=== PATIENT | male | born 1965 | race Caucasian/White ===

== ENCOUNTER 2022-09-20 15:29 | Emergency (ER) | payer OTHER ==
[~2022-09-20] VITALS: Ht 167.6 cm; Wt 81.7 kg
[2022-09-20] MEDS ORDERED: LISI20 PO (16:52)
== END 2022-09-20 17:25 | disposition home or self-care (01) ==
LOC: ER 15:29
DX: S83.8X2A Sprain of other specified parts of left knee, initial encounter (principal); W18.40XA Slipping, tripping and stumbling without falling, unspecified, initial encounter; Z88.2 Allergy status to sulfonamides; Z91.018 Allergy to other foods; Z91.09 Other allergy status, other than to drugs and biological substances; Z79.899 Other long term (current) drug therapy
CPT/HCPCS: 29505; 99283-25

== ENCOUNTER 2024-07-13 11:07 | Day surgery (SDC) | payer OTHER ==
[2024-07-13] VITALS (15 sets, daily range): BP systolic 93–141; BP diastolic 58–96
[~2024-07-13] VITALS: Ht 167.6 cm; Wt 82.2 kg
[~2024-07-13 11:07] MED LIST: ATOR20 PO; Acetaminophen 500 MG Tab PO SCH; CeFAZolin Sodium 2,000 MG in NS 100 ML IV SCH; Chlorhexidine Mouth Care 15 ML UDC MT SCH; DULO30 PO; FentaNYL Citrate 50 MCG/ML 2 ML Injection ONE; Flonase 0.05% N16 GM; HYDCHL25 PO; LISI20 PO; Lactated Ringer's 1,000 ML IV SCH; NORVASC2.5 MG PO; OMEP20ER PO; OxyCODONE HCL 10 MG TABCR PO SCH; PANTOPRAZOLE SO20 M3 PO; Percocet 5-3251 EACH PO; Ropivacaine 0.5% HCl/Pf 123.125 MG,EPINEPHrine HCL 0.25 MG,Ketorolac Tromethamine 15 MG... INFIL SCH; Tranexamic Acid 100 ML IV SCH; ZYRTEC10 M2 PO; propofoL 20 ML IV ONE
--- NOTE | 2024-07-13 12:00 | NUR ---
INTO SDS. PT REPORTS 4/10 LEFT KNEE PAIN. PT HAS CHRONIC PAIN AND HAS HAD MULTIPLE SURGERIES IN THE PAST. PT HAS NERVE STIMULATOR THAT IS IMPLANTED, BUT NOT CURRENTLY WORKING DUE TO HAVING A BATTERY. HISTORY AND ALLERGIES REVIEWED. LUNGS CLEAR-NO NOTED SOB. SATS 100% ON RA. NPO STATUS CONFIRMED. Patient reports completing Chlorhexadine shower X2 prior to admission to hospital.Surgical site prepped with 2% Chlorhexidine cloth wipe.
[2024-07-13] MEDS ORDERED: Bisacodyl 10 MG Supp PR PRN (12:50)
[2024-07-13] MEDS ORDERED: OxyCODONE HCL 5 MG TAB PO PRN ×2 (12:50)
[2024-07-13] MEDS ORDERED: Magnesium Hydroxide Conc 10 ML UDC PO PRN (12:55)
[2024-07-13] MEDS ORDERED: Lactated Ringer's 1,000 ML IV SCH (12:55)
[2024-07-13] MEDS ORDERED: Metoclopramide HCl 5MG / ML 2ML Vial IV PRN (12:55)
[2024-07-13] MEDS ORDERED: Promethazine HCl 25 MG Tab PO PRN (12:55)
[2024-07-13] MEDS ORDERED: Ondansetron HCl 2 MG / ML 2ML Vial IV PRN (12:55)
[2024-07-13] MEDS ORDERED: DiphenhydrAMINE HCL 25 MG Cap PO PRN (13:00)
[2024-07-13] MEDS ORDERED: FLU VACC TS2024-25(6MOS UP)/PF 45 MCG/0.5 ML SYRINGE IM SCH (13:00)
[2024-07-13] MEDS ORDERED: HYDROmorphone HCl/Pf 1MG SYR IV PRN (13:00)
[2024-07-13] MEDS ORDERED: propofoL 20 ML IV ONE ×2 (13:42→14:36)
[2024-07-13] MEDS ORDERED: FentaNYL Citrate 50 MCG/ML 2 ML Injection ONE (15:27)
[2024-07-13] MEDS ORDERED: Acetaminophen 500 MG Tab PO SCH (16:00)
[2024-07-13] MEDS ORDERED: Ketorolac Tromethamine 15mg Vial IV SCH (18:00)
[2024-07-13] MEDS ORDERED: CeFAZolin Sodium 2,000 MG in NS 100 ML IV SCH (21:00)
[2024-07-13] MEDS ORDERED: Docusate Sodium 100 MG Cap PO SCH (21:00)
[2024-07-14 00:17] VITALS: BP 107/64
--- NOTE | 2024-07-14 04:20 | NUR ---
SHIFT SUMMARY POD1 L TOTAL KNEE. PAIN MANAGED UTILIZING NPIS AND PER EMAR. DRESSING TO L KNEE CDI. PT REPORTS HE USES CPAP AT NIGHT AT HOME, DID NOT BRING TONIGHT. PT SAYS HE DOES NOT WANT CPAP TONIGHT, STATES, "I DON'T NEED IT ALL THE TIME". VOIDING, PASSING GAS, TOLERATING PO INTAKE. PT ABLE TO REST DURING SHIFT. PT VOICED UNDERSATNDING OF PLAN OF CARE, DENIES QUESTIONS/CONCERNS AT THIS TIME.
[2024-07-14 04:40] VITALS: BP 101/60
[2024-07-14 05:40] LABS: BASOPHILS ABSOLUTE AUTO 0.05 K/mm3 (0.00-0.23); BASOPHILS PERCENT AUTO 1 % (0-2); EOSINOPHILS ABSOLUTE AUTO 0.22 K/mm3 (0.00-0.68); EOSINOPHILS PERCENT AUTO 2 % (0-6); Hematocrit 29.3 % (37.0-53.0); Hemoglobin 9.9 g/dL (13.5-17.5); IMMATURE GRAN ABSOLUTE AUTO 0.03 K/mm3 (0.00-0.10); IMMATURE GRAN PERCENT AUTO 0 % (0-1); LYMPHOCYTES ABSOLUTE AUTO 0.26 K/mm3 (0.84-5.20); LYMPHOCYTES PERCENT AUTO 3 % (21-46); MONOCYTES ABSOLUTE AUTO 0.52 K/mm3 (0.16-1.47); MONOCYTES PERCENT AUTO 5 % (4-13); Mean Corpuscular HGB 30.7 pg (26.0-34.0); Mean Corpuscular HGB Conc 33.8 g/dL (31.5-36.5); Mean Corpuscular Volume 91 fL (80-100); Mean Platelet Volume 10.4 fL (9.1-12.4); NEUTROPHILS ABSOLUTE AUTO 8.51 K/mm3 (1.96-9.15); NEUTROPHILS PERCENT AUTO 89 % (41-73); Platelet Count 212 K/mm3 (150-400); RDW Coefficient Variation 13.1 % (11.7-14.2); Red Blood Cell Count 3.22 M/mm3 (4.30-5.90); White Blood Cell Count 9.59 K/mm3 (4.00-11.30)
[2024-07-14] MEDS ORDERED: Pantoprazole Sodium 20 MG Tab PO SCH (06:00)
[2024-07-14 06:06] LABS: Bun/Creatinine Ratio 8.8 (12.0-20.0); Calcium, Blood 8.3 mg/dL (8.5-10.1); Creatinine, Blood 1.93 mg/dL (0.60-1.20); Magnesium, Blood 1.7 mg/dL (1.6-2.4); Potassium, Blood 4.9 mmol/L (3.5-5.5)
[2024-07-14 07:16] VITALS: BP 97/60
[2024-07-14] MEDS ORDERED: ASPI81CH PO (07:44)
[2024-07-14] MEDS ORDERED: ACET500 PO (07:44)
[2024-07-14] MEDS ORDERED: OXYC5 PO (07:44)
[2024-07-14] MEDS ORDERED: Aspirin 81 MG Chew PO SCH (09:00)
[2024-07-14] MEDS ORDERED: Fluticasone 0.05% Nasal Spray SCH (09:00)
[2024-07-14] MEDS ORDERED: AmLODIPine Besylate 5 MG Tab PO SCH (09:00)
[2024-07-14] MEDS ORDERED: Lisinopril 20 MG Tab PO SCH (09:00)
[2024-07-14] MEDS ORDERED: DULoxetine HCL 30 MG Cap DR PO SCH (09:00)
--- NOTE | 2024-07-14 11:25 | NUR ---
DISCHARGE SUMMARY POD 1 L TKA. VSS. TOLERATING ORALS. VOIDING. AMBULATES USING FWW, CLEARED PHYSCIAL THERAPY EVAL. AQUACEL C/D/I. PT REPORTS PAIN TOLERABLE c ORAL PAIN MEDICATIONS. DISCHARGE INSTRUCTIONS GIVEN TO PT, PT VERBALIZES UNDERSTANDING. IV REMOVED. ALL PERSONAL BELONGINGS WITH PT. PT D/C'd TO POV VIA WHEELCHAIR, DRIVEN BY SPOUSE.
== END 2024-07-14 11:25 | disposition home or self-care (01) ==
LOC: ORSCMMR 11:07 → ORD 13:30 → SURS 15:34 → ORD 16:00 → ORSCMMR 16:00
PROVIDERS: Orthopaedic Surgery
PROC: 0SRD0JZ Replacement of Left Knee Joint with Synthetic Substitute, Open Approach (ICD-10-PCS; principal; 2024-07-13 12:30)
DX: M17.12 Unilateral primary osteoarthritis, left knee (principal); E11.9 Type 2 diabetes mellitus without complications; K21.9 Gastro-esophageal reflux disease without esophagitis; E78.5 Hyperlipidemia, unspecified; I10 Essential (primary) hypertension; G47.33 Obstructive sleep apnea (adult) (pediatric); F17.210 Nicotine dependence, cigarettes, uncomplicated; Z79.899 Other long term (current) drug therapy; Z79.82 Long term (current) use of aspirin
CPT/HCPCS: 36415; 73560-LT; 80048; 82947; 83735; 84295; 85025; 97110; 97162; 97530; A9270; C1713; C1776; C1887; J0171; J0690; J0735; J1170; J1171; J1885; J2470; J2704; J2795; J3010; J7120